=== PATIENT | female | born 1950 | race Caucasian/White ===

== ENCOUNTER 2016-12-05 09:46 | Day surgery (SDC) | payer MEDICARE, OTHER ==
[~2016-12-05 09:46] MED LIST: RINGER'S SOLUTION,LACTATED 1,000 ML IV PRN; ceFAZolin SODIUM 2 GM in DEXTROSE 5 % IN WATER 50 ML IV PRN
[2016-12-05] MEDS ORDERED: RINGER'S SOLUTION,LACTATED 1,000 ML IV ONE ×2 (10:13→14:08)
[2016-12-05] MEDS ORDERED: ISOSULFAN BLUE 10 MG/ML VIAL IJ ONE (11:30)
[2016-12-05] MEDS ORDERED: BUPIVACAINE HCL 50 ML VIAL IJ ONE ×2 (13:00)
--- NOTE | 2016-12-05 15:02 | OR ---
Operative Report - Dictated Report Narrative: Date: 12/05/2016 Preop dx: right breast cancer Postop dx: same Procedure: Inject blue dye. [place] lymph node biopsy right axilla, deep. Needle localized right partial mastectomy. Staff surgeon: Maulik Carballo MD Asst surgeon: Luly Pulido Anesthesia: GET EBL: Minimal Specimens: [place] lymph node x 1. Right breast tissue. Drains: none Complications: none apparent Indications: Patient has invasive ductal carcinoma of the right breast and presents for definitive initial therapy. Description: The patient was placed in the supine position and following the smooth induction of general endotracheal anesthesia the right arm was placed out on an arm board. This patient is undergone preoperative lymphoscintigraphy for sentinel lymph node biopsy and has had placement of a localization wire that enters the right breast at 9:00 in the anterior axillary line. This wire was trimmed to length. The right breast and axilla were then prepped and draped in a sterile fashion. A neoprobe was used to I identify the point of maximal counts in the right axilla. The skin was anesthetized with Marcaine and incision was carried out. Dissection was taken through the subcutaneous tissue into the axillary fat pad. A neoprobe was used to identify the sentinel node. Just after induction 5 mL of Lymphazurin had been injected in the subareolar position using sterile technique. The sentinel node was stained blue. A transfixing suture of silk was placed through the node for countertraction. The node was excised with electrocautery. Ex vivo the sentinel node had counts of 13,000. Neoprobe was used to scan the axilla and counts were from below 10% of the sentinel node and therefore the axillary dissection was terminated. The incision was closed with subcuticular stitch of 4-0 Vicryl and sealed with Dermabond. Attention was turned towards the partial mastectomy. An incision was carried out starting at the entry point of the wire and extending in a cephalad direction. Dissection was taken down through the subcutaneous tissue and the mammary sewn following the wire. When we reached the thickening bar our dissection was fanned out to a sphere with a radius of approximately 2-1/2 cm this completely enveloped the area of interest. The specimen was oriented in 3 dimensions with a long silk stitch on the anterior aspect, the wire entering in the lateral aspect, and a short stitch on the inferior or caudad aspect. Once liberated the specimen was sent for specimen mammogram and was reported to contain the previously placed clip. This will be submitted for permanent sectioning. The sentinel node will be submitted for permanent sectioning. Hemostasis appeared to be adequate. The cavity was filled with Marcaine and the incision was closed with a subcuticular stitch and sealed with Dermabond. The patient tolerated the procedure well without any apparent complications was discharged from the operating room in stable condition.
[2016-12-05] MEDS ORDERED: RINGER'S SOLUTION,LACTATED 1,000 ML IV PRN (15:24)
[2016-12-05] MEDS ORDERED: MORPHINE SULFATE 2 MG/ML DISP.SYRIN IV PRN (15:25)
[2016-12-05] MEDS ORDERED: HYDROcodone/ACETAMINOPHEN 1 EACH TABLET PO PRN (15:27)
[2016-12-05] MEDS ORDERED: ONDANSETRON HCL/PF 2 MG/ML VIAL IV PRN (15:33)
[2016-12-05 16:25] VITALS: BP 147/84
== END 2016-12-05 09:47 | disposition home or self-care (01) ==
LOC: AMB 09:46
PROVIDERS: ATTEND Specialist
PROC: 0HBT0ZZ Excision of Right Breast, Open Approach (ICD-10-PCS; 2016-12-05)
PROC: 07B50ZX Excision of Right Axillary Lymphatic, Open Approach, Diagnostic (ICD-10-PCS; principal; 2016-12-05 12:40)
DX: D05.11 Intraductal carcinoma in situ of right breast (principal); I10 Essential (primary) hypertension; I25.10 Atherosclerotic heart disease of native coronary artery without angina pectoris; E78.5 Hyperlipidemia, unspecified; I73.9 Peripheral vascular disease, unspecified; D64.9 Anemia, unspecified; F41.1 Generalized anxiety disorder; F32.9 Major depressive disorder, single episode, unspecified; E66.9 Obesity, unspecified; Z68.37 Body mass index [BMI] 37.0-37.9, adult; Z87.891 Personal history of nicotine dependence
CPT/HCPCS: 19301; 38525; 38900; 76098; 76942; 78195; 88307; 88341; 88342; A9541; G0206

== ENCOUNTER 2017-01-01 13:41 | Emergency (ER) | payer MEDICARE, OTHER ==
[2017-01-01 14:13] LABS: Prothrombin Time (Patient) 10.2 Seconds (9.4-11.4)
[2017-01-01 14:14] LABS: INR 0.98 INR (0.90-1.10); Partial Thrombolplastin Time 27.5 Seconds (24-32)
[2017-01-01] MEDS ORDERED: METOPROLOL TARTRATE 25 MG TABLET PO ONE (14:20)
[2017-01-01 14:31] VITALS: BP 148/69
[2017-01-01] MEDS ORDERED: METOPROLOL TARTRATE 25 MG TABLET ONE (14:32)
--- NOTE | 2017-01-01 14:36 | ERNOTE ---
Medical Problem HPI - General Chief Complaint: General Assessment Time Seen by Provider: 01/01/17 14:07 Source: patient, family Exam Limitations: no limitations - Immun/Allergies/Home Medications Immunizations: IMMUNIZATION HX Immunizations Up to Date Yes Allergies/Adverse Reactions: Allergies acetaminophen [From Percocet] Allergy (Mild, Verified 01/01/17 13:54) Itching codeine [Codeine] Allergy (Mild, Verified 01/01/17 13:54) Eyes swelled oxycodone HCl [From Percocet] Allergy (Mild, Verified 01/01/17 13:54) Itching atorvastatin calcium [From Lipitor] Adverse Reaction (Mild, Verified 01/01/17 13 :54) "INTOLERANCE" doxycycline Adverse Reaction (Mild, Verified 01/01/17 13:54) Vomiting Fish Containing Products Adverse Reaction (Mild, Verified 01/01/17 13:54) Vomiting Home Medications: HOME MEDICATIONS Losartan Potassium [Cozaar] 100 mg PO DAILY 11/14/12 [Last Taken Unknown] amLODIPine BESYLATE [Norvasc (Amlodipine)] 5 mg PO DAILY 11/14/12 [Last Taken 07:00] Nitroglycerin [Nitrostat] 0.4 mg SL [id number] PRN 08/07/13 [Last Taken Unknown] Aspirin [Aspirin Enteric Coated] 81 mg PO DAILY 10/05/14 [Last Taken Unknown] Cholecalciferol (Vitamin D3) [Vitamin D-3] 2,000 unit PO DAILY 10/05/14 [Last Taken Unknown] Ferrous Sulfate [Iron] 325 mg PO DAILY 10/05/14 [Last Taken Unknown] Oxybutynin Chloride [Ditropan] 5 mg PO DAILY 10/05/14 [Last Taken Unknown] Pantoprazole Sodium [Protonix] 40 mg PO DAILY 10/05/14 [Last Taken Unknown] Simvastatin [Zocor] 40 mg PO HS 10/05/14 [Last Taken Unknown] Ubidecarenone [Co Q-10] 200 mg PO DAILY 10/21/15 [Last Taken Unknown] metFORMIN HCL [Glucophage] 500 mg PO HS 10/21/15 [Last Taken Unknown] Meloxicam [Mobic] 15 mg PO DAILY 12/01/16 [Last Taken Unknown] Metoprolol Succinate [Toprol Xl] 25 mg PO DAILY 12/01/16 [Last Taken 12/05/16 07 :30] Multivitamins [Multivitamin Paty] 1 cap PO DAILY 12/01/16 [Last Taken Unknown] Phentermine HCl [Adipex-P] 37.5 mg PO DAILY 12/01/16 [Last Taken Unknown] Sertraline HCl [Zoloft] 100 mg PO DAILY 12/01/16 [Last Taken Unknown] Vits A,C,E/Lutein/Minerals [Healthy Eyes Caplet] 1 each PO DAILY 12/01/16 [Last Taken Unknown] HYDROcodone/ACETAMINOPHEN [[place] 5-325] 1 each PO Q4H PRN #60 tablet 12/05/16 [ Last Taken Unknown] Ibuprofen [Motrin] 800 mg PO TID #15 tablet 12/05/16 [Last Taken Unknown] - History of Present History Narrative: Patient was sent over from the oncology clinic as they were afraid that she might be in atrial fibrillation as noted on an EKG done in the department. Patient has no complaint of any kind. Review of Systems - Review of Systems Constitutional: Present: no symptoms reported EYE: Present: no symptoms reported ENT: Present: no symptoms reported Respiratory: Present: no symptoms reported Cardiology: Present: palpitations Gastrointestinal/Abdominal: Present: no symptoms reported Genitourinary: Present: no symptoms reported Musculoskeletal: Present: no symptoms reported Skin: Present: no symptoms reported Neurological: Present: no symptoms reported Endocrine: Present: no symptoms reported Hematologic/Lymphatic: Present: no symptoms reported Psych: Present: no symptoms reported - Patient's Past Medical History Patient History - Medical: Anemia, Anxiety, Obesity, Other Patient History - Cardiac/Respiratory: Coronary Heart Disease, Hypertension, Hyperlipidemia, Peripheral Vascular Disease, Sleep Apnea Patient History - Cancer: No Hx of Cancer Patient History - Surgical Procedures: Cataracts, Cholecystectomy, Colonoscopy, EGD, Other Patient History - Other: None - Family History Brother Family History - Medical: , No pertinent hx Family History - Cardiac/Respiratory: Coronary Heart Disease, Myocardial Infarction Family History - Cancer: No pertinent family hx Father Family History - Medical: , No pertinent hx Family History - Cardiac/Respiratory: Coronary Heart Disease Family History - Cancer: No pertinent family hx Mother Family History - Medical: , No pertinent hx, Diabetes Type 2 Family History - Cardiac/Respiratory: Coronary Heart Disease Family History - Cancer: No pertinent family hx Sister Family History - Medical: , No pertinent hx, Diabetes Type 2 Family History - Cardiac/Respiratory: Coronary Heart Disease Family History - Cancer: No pertinent family hx - Social History Living Situations: home Abuse History: No History of abuse Psych History: Hx of Anxiety, Hx of Depression Have you smoked in the past 12 months: No Alcohol Use: none Drug Use: none - Immunizations Immunizations Up to Date: Yes Physical Exam - Physical Exam General Appearance: Present: wd/wn, alert, no apparent distress Head Exam: Present: normal inspection Eye Exam: Normal inspection: bilateral, PERRL: bilateral Ears, Nose, Throat: Present: normal ENT inspection, H, normal pharynx Neck: Present: normal inspection, nontender Respiratory: Present: no respiratory distress, normal breath sounds, no accessory muscle use, chest nontender, lungs clear Cardiovascular/Chest: Present: regular rate, rhythm, no murmur, normal peripheral pulses, extra beats Gastrointestinal/Abdominal: Present: normal bowel sounds, nontender, nondistended, soft, no organomegaly Rectal Exam: Present: deferred Back Exam: Present: normal inspection, normal range of motion Extremity Exam: Present: normal inspection, non-tender, no edema, normal range of motion Neurological Exam: Present: alert, oriented, normal mood/affect Skin Exam: Present: normal color, warm/dry Lymphatic Exam: Present: no adenopathy ED Progress - Results and Orders Patient's Lab Results:: I have reviewed the patient's lab results. - Vital Signs Patient's Vital Signs:: I have reviewed the patient's vital signs. Vital Signs: Vital Signs 01/01/17 01/01/17 01/01/17 13:45 14:08 14:30 Temperature 37.1 C Pulse Rate 93 90 89 Respiratory 17 13 15 Rate Blood Pressure 147/71 137/71 148/69 O2 Sat by Pulse 98 98 96 Oximetry - EKG EKG: NSR, premature ventricular contraction, other - PAC's - Progress/Reassessment Chief Complaint: General Assessment Plan - Plan Plan: Patient is not in atrial fibrillation, she is however having PACs and PVCs. We will have the patient double up on metoprolol and she will follow-up with her family physician as needed. Departure - Departure Clinical Impression: Asymptomatic PVCs, PAC (premature atrial contraction) Disposition: Home self-care Condition: Good Instructions: Premature Ventricular Contraction, Palpitations, [id number], Premature Atrial Contraction Additional Instructions: Increase your metoprolol to 50 mg a day and follow-up with her family doctor as needed Referrals: Per Hayward MD [Primary Care Provider] -
== END 2017-01-01 14:46 | disposition home or self-care (01) ==
LOC: ER 13:41
DX: I49.3 Ventricular premature depolarization (principal); I49.1 Atrial premature depolarization; C50.919 Malignant neoplasm of unspecified site of unspecified female breast

== ENCOUNTER 2017-03-20 19:47 | Emergency (ER) | payer MEDICARE, OTHER ==
[2017-03-20] MEDS ORDERED: METOPROLOL TARTRATE 1 MG/ML AMPUL IV ONE ×2 (20:02→20:09)
[2017-03-20] MEDS ORDERED: ADENOSINE 3 MG/ML DISP.SYRIN IV ONE ×2 (20:09)
[2017-03-20] MEDS ORDERED: NORMAL SALINE 1,000 ML IV ONE (20:10)
--- NOTE | 2017-03-20 20:18 | ERNOTE ---
Chest Pain/Cardiac HPI Chief Complaint: Chest Pain Time Seen by Provider: 03/20/17 20:08 Source: patient Exam Limitations: no limitations Immunizations: IMMUNIZATION HX Immunizations Up to Date Yes Allergies/Adverse Reactions: Allergies acetaminophen [From Percocet] Allergy (Mild, Verified 01/01/17 13:54) Itching codeine [Codeine] Allergy (Mild, Verified 01/01/17 13:54) Eyes swelled oxycodone HCl [From Percocet] Allergy (Mild, Verified 01/01/17 13:54) Itching atorvastatin calcium [From Lipitor] Adverse Reaction (Mild, Verified 01/01/17 13 :54) "INTOLERANCE" doxycycline Adverse Reaction (Mild, Verified 01/01/17 13:54) Vomiting Fish Containing Products Adverse Reaction (Mild, Verified 01/01/17 13:54) Vomiting Home Medications: HOME MEDICATIONS Losartan Potassium [Cozaar] 100 mg PO DAILY 11/14/12 [Last Taken Unknown] amLODIPine BESYLATE [Norvasc (Amlodipine)] 5 mg PO DAILY 11/14/12 [Last Taken 07:00] Nitroglycerin [Nitrostat] 0.4 mg SL [id number] PRN 08/07/13 [Last Taken Unknown] Aspirin [Aspirin Enteric Coated] 81 mg PO DAILY 10/05/14 [Last Taken Unknown] Cholecalciferol (Vitamin D3) [Vitamin D-3] 2,000 unit PO DAILY 10/05/14 [Last Taken Unknown] Ferrous Sulfate [Iron] 325 mg PO DAILY 10/05/14 [Last Taken Unknown] Oxybutynin Chloride [Ditropan] 5 mg PO DAILY 10/05/14 [Last Taken Unknown] Pantoprazole Sodium [Protonix] 40 mg PO DAILY 10/05/14 [Last Taken Unknown] Simvastatin [Zocor] 40 mg PO HS 10/05/14 [Last Taken Unknown] Ubidecarenone [Co Q-10] 200 mg PO DAILY 10/21/15 [Last Taken Unknown] metFORMIN HCL [Glucophage] 500 mg PO HS 10/21/15 [Last Taken Unknown] Meloxicam [Mobic] 15 mg PO DAILY 12/01/16 [Last Taken Unknown] Metoprolol Succinate [Toprol Xl] 25 mg PO DAILY 12/01/16 [Last Taken 12/05/16 07 :30] Multivitamins [Multivitamin Paty] 1 cap PO DAILY 12/01/16 [Last Taken Unknown] Phentermine HCl [Adipex-P] 37.5 mg PO DAILY 12/01/16 [Last Taken Unknown] Sertraline HCl [Zoloft] 100 mg PO DAILY 12/01/16 [Last Taken Unknown] Vits A,C,E/Lutein/Minerals [Healthy Eyes Caplet] 1 each PO DAILY 12/01/16 [Last Taken Unknown] HYDROcodone/ACETAMINOPHEN [[place] 5-325] 1 each PO Q4H PRN #60 tablet 12/05/16 [ Last Taken Unknown] Ibuprofen [Motrin] 800 mg PO TID #15 tablet 12/05/16 [Last Taken Unknown] Metoprolol Succinate [Toprol Xl] 50 mg PO DAILY #30 tab 01/01/17 [Last Taken Unknown] Narrative: Pt had onset of right sided chest and neck pain around 19:00 today. She presented to the ED in SVT at 220 bpm. Timing: getting worse Severity/Quality: moderate, severe Location: other - right chest Chest Pain Radiation: jaw, back Activities at Onset: none Modifying Factors - Improves: Present: nothing Modifying Factors - Worsens: Present: nothing Aspirin Treatment Today: 81 mg x 1 Associated Symptoms: Present: dizziness Prior Chest Pain/Cardiac Workup: Reports: prior chest pain, heart attack, cardiac cath Review of Systems - Review of Systems Constitutional: Present: recent illness EYE: Present: no symptoms reported ENT: Present: nose congestion, sore throat Respiratory: Absent: shortness of breath Cardiology: Present: See HPI, edema - small amount in her legs. Absent: syncope Gastrointestinal/Abdominal: Absent: nausea, vomiting Genitourinary: Absent: frequency, pain Musculoskeletal: Present: See HPI, back pain Skin: Present: no symptoms reported Neurological: Present: dizziness/light-headedness Endocrine: Present: intolerance to cold. Absent: excessive sweating, flushing Hematologic/Lymphatic: Present: no symptoms reported Psych: Present: no symptoms reported - Patient's Past Medical History Patient History - Medical: Anemia, Anxiety, Obesity, Other Patient History - Cardiac/Respiratory: Coronary Heart Disease, Hypertension, Hyperlipidemia, Peripheral Vascular Disease, Sleep Apnea Patient History - Cancer: No Hx of Cancer Patient History - Surgical Procedures: Cataracts, Cholecystectomy, Colonoscopy, EGD, Other Patient History - Other: None - Family History Brother Family History - Medical: , No pertinent hx Family History - Cardiac/Respiratory: Coronary Heart Disease, Myocardial Infarction Family History - Cancer: No pertinent family hx Father Family History - Medical: , No pertinent hx Family History - Cardiac/Respiratory: Coronary Heart Disease Family History - Cancer: No pertinent family hx Mother Family History - Medical: , No pertinent hx, Diabetes Type 2 Family History - Cardiac/Respiratory: Coronary Heart Disease Family History - Cancer: No pertinent family hx Sister Family History - Medical: , No pertinent hx, Diabetes Type 2 Family History - Cardiac/Respiratory: Coronary Heart Disease Family History - Cancer: No pertinent family hx - Social History Abuse History: No History of abuse Psych History: Hx of Anxiety, Hx of Depression - Immunizations Immunizations Up to Date: Yes Physical Exam - Physical Exam General Appearance: Present: wd/wn, alert, mild distress Head Exam: Present: normal inspection, no evidence of injury Eye Exam: Normal inspection: bilateral, PERRL: bilateral, EOMI: bilateral Neck: Present: normal inspection, nontender Respiratory: Present: no respiratory distress, normal breath sounds, no accessory muscle use, lungs clear Cardiovascular/Chest: Present: no murmur, tachycardia Gastrointestinal/Abdominal: Present: nontender, nondistended, soft Extremity Exam: Present: normal inspection, non-tender, normal range of motion, no edema Neurological Exam: Present: alert, oriented, normal mood/affect, no motor/ sensory deficits Skin Exam: Present: normal color, warm/dry Lymphatic Exam: Present: no adenopathy ED Progress - Results and Orders Patient's Lab Results:: I have reviewed the patient's lab results. Results and Orders: Laboratory Tests 03/20/17 03/20/17 03/20/17 20:25 20:25 20:25 WBC 7.6 Hgb 13.2 Hct 38.3 Plt Count 190 Neutrophils % 75.6 H PT 10.2 INR (Anticoag Therapy) 1.02 PTT ([place]) 28.1 Sodium 140 Potassium 3.2 L Chloride 103 Carbon Dioxide 20.3 L Anion Gap 19.9 H BUN 11 Creatinine 1.16 Est GFR (Non-Af Amer) 50 L D Random Glucose 219 H Calcium 9.3 Total Bilirubin 0.5 AST 41 ALT 32 Alkaline Phosphatase 98 Troponin I 0.021 Total Protein 7.5 Albumin 3.5 - Vital Signs Patient's Vital Signs:: I have reviewed the patient's vital signs. - EKG EKG: supraventricular tachycardia - at 201 bpm EKG read: Interp. by me EKG Comments: intraventricular conduction delay #2: Sinus tach ST depression, moderate T-wave changes. - X-Ray X-Ray #1 X-Ray: chest Interpretation: Reviewed by me X-ray Comments: IMPRESSION: Minimal bibasilar heterogeneous opacities, likely subsegmental atelectasis. No consolidation. Age-indeterminate widening of radical mandibular joint consistent with an acromioclavicular joint sprain. Electronically signed by Judith Allen D.O.. - Progress/Reassessment Progress:: Improved Progress Note-Subjective: 03/20/17 20:18 Pt presented in SVT at 220 bpm. She was given 6 mg adenosine IV with minimal change in HR. She was then given 12 mg adenosine IV and HR reduced to 90-110 with frequent PVC's. Pt was given 5 mg lopressor IV. 03/21/17 01:10 discussed repeat troponin which is still WNL. Encouraged her to come back to the ED if her symptoms were to return. Departure Clinical Impression: PSVT (paroxysmal supraventricular tachycardia) - Departure Disposition: Home Follow Up Needed Condition: Good Instructions: Paroxysmal Supraventricular Tachycardia Additional Instructions: See Dr. Hayward within the next week or so to discuss a plan for further evaluation or treatment if it happens again. Referrals: Per Hayward MD [Primary Care Provider] -
[2017-03-20 20:30] LABS: Hematocrit 38.3 % (37.0-47.0); Hemoglobin 13.2 gm/dL (12.5-16.0); Mean Cell Volume 85.3 fl (78-100); Mean Corpuscular Hemoglobin 29.4 pg (27-31); Mean Corpuscular Hgb Conc 34.5 g/dl (32-36); Mean Platelet Volume 9.8 fl (6.0-9.5); Neutrophil # 5.8 K/mm3 (1.3-6.0); Neutrophil % 75.6 % (42-75.0); Platelet Count 190 K/mm3 (150-450); Red Blood Count 4.49 M/mm3 (4.2-5.4); White Blood Count 7.6 K/mm3 (4.0-10.5)
[2017-03-20 20:44] LABS: Prothrombin Time (Patient) 10.2 Seconds (9.0-11.0)
[2017-03-20 20:51] LABS: Albumin * 3.5 gm/dl (3.4-5.0); Anion Gap 19.9 mmol/L (6.8-13.8); BUN/Creatinine Ratio 9.5 (9.0-21.6); Bilirubin, Total 0.5 mg/dL (0.0-1.1); Ca. Corrected For Albumin 9.4 mg/dL (8.4-10.2); Calcium * 9.3 mg/dL (7.9-10.9); Carbon Dioxide 20.3 mmol/L (24-32.6); Potassium 3.2 mmol/L (3.4-4.6); Total Protein 7.5 gm/dL (6.2-8.2); Troponin I 0.021 ng/ml (0.00-0.10)
[2017-03-20 20:53] LABS: INR 1.02 INR (0.90-1.10); Partial Thrombolplastin Time 28.1 Seconds (24-32)
[2017-03-21 03:23] VITALS: BP 158/75
== END 2017-03-21 01:35 | disposition home or self-care (01) ==
LOC: ER 19:47
DX: I47.1 Supraventricular tachycardia (principal)